=== PATIENT | female | born 1955 | race Caucasian/White ===

== ENCOUNTER 2019-04-24 10:11 | Outpatient (CLI) | payer MEDICARE, OTHER, SELFPAY ==
--- NOTE | 2019-04-24 10:12 | MM_ITS ---
WS: [id number] BILATERAL DIGITAL SCREENING MAMMOGRAPHY WITH CAD CLINICAL INFORMATION: SCREENING HISTORY: Screening mammogram. No current complaints. COMPARISON: April 30, 2017 TECHNIQUE: Bilateral CC and MLO views. FINDINGS: Scattered fibroglandular densities bilaterally. No suspicious focal mass, asymmetry, calcifications, or architectural distortion. No evidence of malignancy. MM/[place] [id number] IMPRESSION: BI-RADS: 1-Negative FOLLOW UP: 1 Year Follow-up Recommend return to annual screening mammography.
== END 2019-04-24 10:12 | disposition home or self-care (01) ==
LOC: RADSHAW 10:11
PROVIDERS: Family Provider Registered Nurse; PCP Registered Nurse; Visit Provider Registered Nurse
DX: Z12.31 Encounter for screening mammogram for malignant neoplasm of breast (principal)
CPT/HCPCS: 77067; 81003

== ENCOUNTER → 2019-05-04 11:31 | Outpatient (BNVA) | payer MEDICARE, OTHER, SELFPAY | PROVIDERS: Family Provider Registered Nurse; PCP Registered Nurse; Visit Provider Nurse Practitioner Family | DX: R10.9 Unspecified abdominal pain (principal); M54.9 Dorsalgia, unspecified; Z86.19 Personal history of other infectious and parasitic diseases | CPT/HCPCS: 80076 ==

== ENCOUNTER 2019-08-03 12:18 | Outpatient (CLI) | payer MEDICARE, OTHER, SELFPAY ==
--- NOTE | 2019-08-03 12:26 | XR_ITS ---
WS: [id number] XR thoracic spine 2V [id number] REASON FOR EXAM: acute thoracic pain FINDINGS: Degenerate changes through the mid thoracic area. The vertebral bodies throughout the thora cic spine do not suggest fractures. Cervicothoracic junction appears to be normal. The cervical spine does show anterior listhesis C4 on 5 and degenerate disc changes C5-6. XR/XR thoracic spine 2V [id number] IMPRESSION: Generated changes of the thoracic spine.
--- NOTE | 2019-08-03 12:26 | XR_ITS ---
WS: [id number] XR lumbar spine 2-3V* [id number] REASON FOR EXAM: lumbar pain FINDINGS: Degenerate disc changes L3-L4. There is posterior spurring the segments. There is also dege nerate changes of the disc spaces L5-S1. There is facet arthropathy L5-S1. The lumbosacral angle was essentially normal. The lamina, pedicles, spinous processes and transverse processes show no fractures. XR/XR lumbar spine 2-3V* [id number] IMPRESSION: Degenerated disc changes L3-L4, L5-S1 Facet arthropathy L5-S1
== END 2019-08-03 12:19 | disposition home or self-care (01) ==
LOC: RAD 12:24
PROVIDERS: PCP Registered Nurse; Visit Provider Registered Nurse
DX: M54.5 Low back pain (principal); M47.817 Spondylosis without myelopathy or radiculopathy, lumbosacral region; M51.37 Other intervertebral disc degeneration, lumbosacral region
CPT/HCPCS: 72070; 72100

== ENCOUNTER 2019-08-14 10:50 | Outpatient (CLI) | payer MEDICARE, OTHER, SELFPAY ==
--- NOTE | 2019-08-14 10:54 | XRR_ITS ---
PROCEDURE INFORMATION: Exam: XR Left Hip with Pelvis when Performed Exam date and time: 08/14/2019 11:35 AM Age: 64 years old Clinical indication: Hip pain; Left hip; Additional info: Left hip pain TECHNIQUE: Imaging protocol: XR Left hip with pelvis when performed. Views: 2 or 3 views. COMPARISON: No relevant prior studies available. FINDINGS: Bones/joints: Unremarkable. No acute fracture. Soft tissues: Unremarkable. XR/XR hip LT 2-3V wo/w pel* [id number] IMPRESSION: No acute findings.
== END 2019-08-14 10:51 | disposition home or self-care (01) ==
LOC: RAD 10:52
PROVIDERS: PCP Registered Nurse; Visit Provider Registered Nurse
DX: M79.671 Pain in right foot (principal); M25.552 Pain in left hip
CPT/HCPCS: 73502

== ENCOUNTER 2019-08-29 12:25 | Outpatient (RCR) | payer MEDICARE, OTHER, SELFPAY | END 2019-09-15 23:59 | disposition home or self-care (01) | LOC: SPT 12:25 | PROVIDERS: PCP Registered Nurse; Referring Provider Registered Nurse; Visit Provider Registered Nurse | DX: R29.4 Clicking hip (principal) | CPT/HCPCS: 97110; 97112; 97161 ==

== ENCOUNTER 2019-09-11 10:52 | Outpatient (CLI) | payer MEDICARE, OTHER, SELFPAY ==
--- NOTE | 2019-09-11 11:00 | CT_ITS ---
WS: [id number] NONCONTRAST CT RIGHT FOOT TECHNIQUE: Noncontrast CT right foot with coronal and sagittal reformatted images. CLINICAL INFORMATION: right foot pain COMPARISON: MRI and radiograph April 24, 2019 DLP: 87.[address] scans at [facility] use at least one of these dose optimization techniques: automat ed exposure control; mA and/or kV adjustment per patient size (includes targeted exams where dose is matched to clinical indication); or iterative reconstruction. FINDINGS: Postoperative changes prior wire fixation across the fourth MTP joint. Bony fusion across the fifth M TP. No evidence of osteomyelitis. Normal ankle mortise. Normal talus. Talar dome appears normal. Norm al talocalcaneal and talonavicular articulations. Anterior process of the calcaneus is normal. Tiny p lantar calcaneal spur. Normal medial and lateral malleolus. Mild degenerative narrowing involving the IP joints. Normal navicular and tarsal bones. No other significant findings. CT/CT foot RT wo con* [id number] IMPRESSION: 1. Prior bony fusion across the fifth MTP. Fusion appears solid. 2. Wire fixation across the fourth MTP. 3. No acute fractures. 4. Normal ankle mortise. Normal talar dome. 5. Mild degenerative narrowing involving the IP joints.
== END 2019-09-11 10:53 | disposition home or self-care (01) ==
LOC: RAD 10:55
PROVIDERS: PCP Registered Nurse; Visit Provider Registered Nurse
DX: M79.671 Pain in right foot (principal)
CPT/HCPCS: 73700

== ENCOUNTER 2019-09-16 06:00 | Outpatient (RCR) | payer MEDICARE, OTHER, SELFPAY | END 2019-10-16 23:59 | disposition home or self-care (01) | LOC: SPT 06:00 | PROVIDERS: PCP Registered Nurse; Referring Provider Registered Nurse; Visit Provider Registered Nurse | DX: R29.4 Clicking hip (principal) | CPT/HCPCS: 97110; 97112; 97530 ==

== ENCOUNTER 2019-11-09 09:00 | Outpatient (CLI) | payer MEDICARE, OTHER, SELFPAY ==
--- NOTE | 2019-11-09 09:00 | MM_ITS ---
WS: [id number] DIAGNOSTIC RIGHT DIGITAL MAMMOGRAM WITH CAD RIGHT breast ultrasound, limited HISTORY: right breast pain COMPARISON: 04/24/2019, 04/30/2017 Technique: CC, MLO and ML views. Breast composition: There are scattered areas of fibroglandular density. No suspicious masses or ski n thickening. There are several benign-appearing lymph nodes in the upper outer quadrant and over the pectoralis muscle. These lymph nodes are stable in appearance over multiple prior examinations. No n ipple retraction or skin thickening. RIGHT breast ultrasound, limited. Ultrasound is directed to the area of pain which is near the axilla. There are multiple small lymph n odes present. Normal fatty alexi. No enlargement of the lymph nodes. No skin thickening or distortion. MM/[place] [id number] IMPRESSION: BI-RADS: 2-Benign FOLLOW UP: 1 Year Follow-up
--- NOTE | 2019-11-09 09:30 | US_ITS ---
WS: [id number] DIAGNOSTIC RIGHT DIGITAL MAMMOGRAM WITH CAD RIGHT breast ultrasound, limited HISTORY: right breast pain COMPARISON: 04/24/2019, 04/30/2017 Technique: CC, MLO and ML views. Breast composition: There are scattered areas of fibroglandular density. No suspicious masses or ski n thickening. There are several benign-appearing lymph nodes in the upper outer quadrant and over the pectoralis muscle. These lymph nodes are stable in appearance over multiple prior examinations. No n ipple retraction or skin thickening. RIGHT breast ultrasound, limited. Ultrasound is directed to the area of pain which is near the axilla. There are multiple small lymph n odes present. Normal fatty alexi. No enlargement of the lymph nodes. No skin thickening or distortion. US/US breast RT limited* [id number] IMPRESSION: BI-RADS: 2-Benign FOLLOW UP: 1 Year Follow-up
== END 2019-11-09 09:01 | disposition home or self-care (01) ==
LOC: RADSHAW 09:05
PROVIDERS: PCP Registered Nurse; Visit Provider Registered Nurse
DX: N64.4 Mastodynia (principal)
CPT/HCPCS: 76642; 77065

== ENCOUNTER → 2019-12-14 14:31 | Outpatient (BNVA) | payer MEDICARE, OTHER, SELFPAY | PROVIDERS: PCP Registered Nurse; Visit Provider Registered Nurse | DX: R30.0 Dysuria (principal) | CPT/HCPCS: 81000 ==

== ENCOUNTER → 2020-04-18 14:56 | Outpatient (BNVA) | payer MEDICARE, OTHER, SELFPAY | PROVIDERS: PCP Registered Nurse; Visit Provider Registered Nurse | DX: L20.9 Atopic dermatitis, unspecified (principal); M19.041 Primary osteoarthritis, right hand; M19.042 Primary osteoarthritis, left hand; R79.89 Other specified abnormal findings of blood chemistry; Z79.899 Other long term (current) drug therapy | CPT/HCPCS: 80053; 82306; 85025; 85651; 86140 ==

== ENCOUNTER 2020-06-03 15:10 | Outpatient (CLI) | payer MEDICARE, OTHER, SELFPAY ==
--- NOTE | 2020-06-03 15:16 | MM_ITS ---
WS: [id number] BILATERAL DIGITAL SCREENING MAMMOGRAPHY WITH CAD CLINICAL INFORMATION: SCREENING HISTORY: Screening mammogram. No current complaints. COMPARISON: April 24, 2019 TECHNIQUE: Bilateral CC and MLO views. FINDINGS: Scattered fibroglandular densities bilaterally. No suspicious focal mass, asymmetry, calcifications, or architectural distortion. No evidence of malignancy. A few incidental punctate calcifications. MM/[place] [id number] IMPRESSION: BI-RADS: 2-Benign FOLLOW UP: 1 Year Follow-up Recommend return to annual screening mammography.
== END 2020-06-03 15:11 | disposition home or self-care (01) ==
LOC: RADSHAW 15:14
PROVIDERS: PCP Registered Nurse; Visit Provider Registered Nurse
DX: Z12.31 Encounter for screening mammogram for malignant neoplasm of breast (principal)
CPT/HCPCS: 77067

== ENCOUNTER 2020-06-18 11:30 | Outpatient (CLI) | payer MEDICARE, OTHER, SELFPAY ==
[2020-06-18 12:01] VITALS: BMI 29.6
--- NOTE | 2020-06-18 12:06 | ECG_ITS ---
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 Interpretive Statements NAME OF STUDY: TREADMILL STRESS ECHOCARDIOGRAM INDICATION: Dyspnea on Exertion PROCEDURE: At the baseline, the patient's blood pressure was 131/71 mmHg, oxygen saturation 98% with a heart rate of 72 beats per minute. The baseline electrocardiogram showed normal sinus rhythm, normal axis with normal ST and T's. The patient exercised for 6 minutes 46 seconds on a standard Cornelio protocol. Patient attained a maximum heart rate of 148 beats per minute(94% of the maximum predicted heart rate) with a blood pressure at the peak exercise of 196/70 mm Hg and oxygen saturation of 98%. The EKG at the peak exercise revealed sinus tachycardia with 1 to 1-1/[address] depression in inferolateral leads. Patient did not have any chest pain or any significant EKG changes with the exercise. Study was terminated due to exertional fatigue and attainment of goal heart rate. During the recovery phase, there were no new changes. Blood pressure at the end of the recovery phase was 155/72 mm Hg with a heart rate of 87 beats per minute and oxygen saturation 97%. Echocardiographic pictures were taken at the baseline, immediately following the peak exercise and during the recovery phase. CONCLUSION: 1. Equivocal EKG response to treadmill exercise. 2. No exercise-induced chest pain or cardiac arrhythmia. 3. Excellent exercise tolerance, attained a maximum of 10.2 METs. Maximum VO2 of 35.7 mL/kg/min. 4. Please see separate report for the echocardiographic response to exercise. RESULTS TO KENDRICK AHMADI Electronically Signed On 06-24-2020 13:39:33 CDT by Nini Dee M.D. [email or web address]
--- NOTE | 2020-06-18 12:07 | USCV_ITS ---
Stress Echo Myra Meneses Age: 65 Gender: F : 1955 Exam Date: 06/18/2020 12:43 Ordering Phys: Nini Dee MD ([email or web address]) Technologist: Exam Location: [facility] [place] Indication: Dyspnea on Exertion Rhythm: Sinus Patient History: Atypical angina, Family history Cardiac Medications: NONE Medications in past 24 hours: Contrast: Stress Results Protocol: Modified Cornelio Total dose(mL): Exercise Duration (min:sec): 06:46 METS: 10.2 Resting HR: 72 Resting BP: 131 / 71 Peak HR: 148 Peak BP: 213 / 72 Max Predicted HR: 156 95 % Max Predicted HR Target HR: 133 Double Product: 69686 Stress Summary: The patient's target heart rate was achieved The patient exhibited a hypertensive response with stress BP Response: Normal Reason for Termination: Test terminated after reaching target heart rate (85% max predicted) Cardiac Symptoms: Leg fatigue, Short of Breath ECG Analysis Resting ECG: Stress ECG: Arrhythmia: MEASUREMENTS (Male/Female) Normal Values FINDINGS PROCEDURE: At the baseline, the patient's blood pressure was [131/71] mmHg with a heart rate of 87 bpm. The patient exercised for 6 minutes 46 seconds on a standard Cornelio protocol. Patient attained a maximum heart rate of 148 beats per minute(95% of the maximum predicted heart rate) with a blood pressure at the peak exercise of 213/72 mm Hg. During the recovery phase, there were no new changes. Echocardiographic pictures were taken at the baseline, immediately following the peak exercise and during the recovery phase. Baseline echocardiogram: Normal left ventricular size and systolic function with ejection fraction estimated at 60%. No regional wall motion abnormalities. Normal right ventricle size and systolic function. Normal left and right atrial size. No pericardial effusion. No intracardiac masses. Peak exercise echocardiogram: Normal augmentation of left ventricular systolic function with exercise. No new regional wall motion abnormalities. Recovery echocardiogram: Left ventricular systolic function normalizes. No regional wall motion abnormalities. CONCLUSIONS 1. This is a treadmill stress echocardiogram. 2. Excellent exercise tolerance for age, attained a maximum of 10.2 METs. Double product of 31,525. 3. Normal blood pressure and heart rate response to exercise. 4. Normal echocardiographic response to exercise. 5. Equivocal EKG response to treadmill exercise. Refer to separate report for details. Nini Dee MD (Electronically Signed) Final Date: 24 Jun 2020 17:10 S
[2020-06-18 13:28] VITALS: BP 155/68; PULSE 82
== END 2020-06-18 11:31 | disposition home or self-care (01) ==
LOC: CDL 11:32
PROVIDERS: PCP Registered Nurse; Visit Provider Internal Medicine Cardiovascular Disease
DX: R06.00 Dyspnea, unspecified (principal)
CPT/HCPCS: 93017; 93350

== ENCOUNTER → 2020-08-14 09:12 | Outpatient (BNVA) | payer MEDICARE, OTHER, SELFPAY | PROVIDERS: PCP Registered Nurse; Visit Provider Internal Medicine Cardiovascular Disease | DX: R06.00 Dyspnea, unspecified (principal); E11.9 Type 2 diabetes mellitus without complications; I10 Essential (primary) hypertension; R94.39 Abnormal result of other cardiovascular function study; Z79.899 Other long term (current) drug therapy; Z82.49 Family history of ischemic heart disease and other diseases of the circulatory system | CPT/HCPCS: 80048; 80061; 86141 ==

== ENCOUNTER → 2020-10-29 13:55 | Outpatient (BNVA) | payer MEDICARE, OTHER, SELFPAY | PROVIDERS: PCP Registered Nurse; Visit Provider Registered Nurse | DX: N39.0 Urinary tract infection, site not specified (principal) | CPT/HCPCS: 81000; 87077; 87086; 87184 ==

== ENCOUNTER 2021-04-21 13:59 | Outpatient (CLI) | payer MEDICARE, OTHER, SELFPAY ==
--- NOTE | 2021-04-21 14:07 | XRR_ITS ---
PROCEDURE INFORMATION: Exam: XR Thoracic Spine Exam date and time: 04/21/2021 2:07 PM Age: 65 years old Clinical indication: Pain in thoracic spine; Patient HX: Back and hip pain, PT felt pop in back for 1 week. HX of cervical and skin cancer TECHNIQUE: Imaging protocol: XR of the thoracic spine. Views: 3 views. COMPARISON: CR XR thoracic spine 2V [id number] 08/03/2019 12:37 PM FINDINGS: Bones/joints: No acute fracture. Normal alignment. Soft tissues: Unremarkable. XR/XR thoracic spine 3V* [id number] IMPRESSION: No acute findings.
--- NOTE | 2021-04-21 14:07 | XRR_ITS ---
PROCEDURE INFORMATION: Exam: XR Bilateral Hips Exam date and time: 04/21/2021 2:07 PM Age: 65 years old Clinical indication: Bilateral; Patient HX: Back and hip pain, PT felt pop in back for 1 week. HX of cervical and skin cancer TECHNIQUE: Imaging protocol: XR bilateral hips. Views: 2 views of hips with pelvis when performed. COMPARISON: CR Hip 2-3v LEFT wwo Pelv* [id number] 05/22/2020 12:12 PM FINDINGS: Bones/joints: Osseous structures are intact. Negative for fracture. Joint spaces are preserved. Soft tissues: Unremarkable. XR/XR hip BI 3-4V wo/w pel [id number] IMPRESSION: No acute findings.
--- NOTE | 2021-04-21 14:07 | XRR_ITS ---
PROCEDURE INFORMATION: Exam: XR Lumbosacral Spine Exam date and time: 04/21/2021 2:07 PM Age: 65 years old Clinical indication: Low back pain; Patient HX: Back and hip pain, PT felt pop in back for 1 week. HX of cervical and skin cancer TECHNIQUE: Imaging protocol: XR of the lumbosacral spine. Views: 2 or 3 views. COMPARISON: CR Lumbar Spine 3 views 05/22/2020 12:10 PM FINDINGS: Bones/joints: No acute fracture. Normal alignment. Multilevel degenerative disc disease within the lumbar spine most significant at L3-L4. Lower lumbar facet arthropathy noted. These findings are not significantly changed from prior study. Soft tissues: Unremarkable. XR/XR lumbar spine 2-3V* [id number] IMPRESSION: No acute findings.
== END 2021-04-21 14:00 | disposition home or self-care (01) ==
LOC: RAD 14:02
PROVIDERS: PCP Nurse Practitioner Family; Visit Provider Nurse Practitioner Family
DX: M54.50 Low back pain, unspecified (principal); M54.6 Pain in thoracic spine; M25.551 Pain in right hip; M25.552 Pain in left hip
CPT/HCPCS: 72072; 72100; 73522

== ENCOUNTER 2021-05-14 13:08 | Outpatient (CLI) | payer MEDICARE, OTHER, SELFPAY ==
--- NOTE | 2021-05-14 13:45 | MR_ITS ---
WS: [id number] MRI LUMBAR SPINE NONCONTRAST TECHNIQUE: Sagittal T1, T2 and STIR imaging. Axial T1 and T2 imaging. CLINICAL INFORMATION: Progressive pain in right leg. COMPARISON: MRI 3 FINDINGS: Mild lumbar curve. No acute compression. No high-grade central canal stenosis. Disc space narrowing w orse at L2-L3 and L3-L4 unchanged from previous. L1-L2: Mild annular bulging. Spinal canal and foramen are patent. Slight narrowing of the RIGHT subar ticular recess. Mild facet arthropathy. L2-L3: Mild disc bulging with slight effacement of ventral thecal sac. Narrowing of the subarticular recess. Mild facet arthropathy. Mild LEFT foraminal narrowing. RIGHT foramen is patent. Previously de scribed LEFT pericentral protrusion is smaller today. L3-L4: Mild disc bulging with osteophytic ridging. Narrowing of the subarticular recess bilaterally. Mild LEFT foraminal narrowing. RIGHT foramen is patent. Mild facet arthropathy. L4-L5: Mild annular bulging. Slight narrowing of the RIGHT subarticular recess. Mild LEFT greater charly n RIGHT foraminal narrowing. L5-S1: Mild disc bulging with osteophytic ridging. Moderate facet arthropathy. Spinal canal and brenden en are patent. Visualized pelvic bony structures: Normal. Paravertebral soft tissues: Normal. MR/MR lumbar spine wo con* [id number] IMPRESSION: 1. Mild lumbar curve. No acute compression. No high-grade central canal stenos is. 2. Disc space narrowing worse at L2-L3 and L3-L4 unchanged from previous. 3. Mild central canal stenosis L3-L4 unchanged from previous with narrowing of the subarticular recess bilaterally. 4. Mild LEFT L2-L3 foraminal narrowing with slight narrowing of the LEFT subar ticular recess unchanged. 5. Mild LEFT L3-L4 and LEFT greater than RIGHT L4-L5 foraminal narrowing uncha nged. 6. Moderate facet arthropathy worse L5-S1. 7. Overall no significant changes compared to previous.
== END 2021-05-14 13:09 | disposition home or self-care (01) ==
LOC: RAD 13:10
PROVIDERS: PCP Nurse Practitioner Family; Visit Provider Nurse Practitioner Family
DX: M79.604 Pain in right leg (principal); M48.061 Spinal stenosis, lumbar region without neurogenic claudication; M47.817 Spondylosis without myelopathy or radiculopathy, lumbosacral region
CPT/HCPCS: 72148

== ENCOUNTER 2021-06-19 15:09 | Outpatient (CLI) | payer MEDICARE, OTHER, SELFPAY ==
--- NOTE | 2021-06-19 15:17 | MM_ITS ---
WS: [id number] BILATERAL 3D TOMOSYNTHESIS DIGITAL SCREENING MAMMOGRAPHY WITH CAD CLINICAL INFORMATION: SCREENING HISTORY: Screening mammogram. No current complaints. COMPARISON: June 03, 2020 TECHNIQUE: Bilateral CC and MLO views. FINDINGS: Scattered fibroglandular densities bilaterally. A few incidental punctate calcifications. No suspicio us focal mass, asymmetry, calcifications, or architectural distortion. No evidence of malignancy. MM/[place] [id number] IMPRESSION: BI-RADS: 2-Benign FOLLOW UP: 1 Year Follow-up Recommend return to annual screening mammography.
== END 2021-06-19 15:10 | disposition home or self-care (01) ==
LOC: RAD 15:10
PROVIDERS: PCP Nurse Practitioner Family; Visit Provider Nurse Practitioner Family
DX: Z12.31 Encounter for screening mammogram for malignant neoplasm of breast (principal)
CPT/HCPCS: 77063; 77067

== ENCOUNTER → 2021-07-01 14:18 | Outpatient (BNVA) | payer MEDICARE, OTHER, SELFPAY | PROVIDERS: PCP Nurse Practitioner Family; Referring Provider Nurse Practitioner Family; Visit Provider Orthopaedic Surgery | DX: M48.061 Spinal stenosis, lumbar region without neurogenic claudication (principal) | CPT/HCPCS: 72120; 99203; 99204 ==

== ENCOUNTER 2021-07-16 14:02 | Outpatient (RCR) | payer MEDICARE, OTHER, SELFPAY | END 2021-08-14 23:59 | disposition home or self-care (01) | LOC: SPT 14:02 | PROVIDERS: PCP Nurse Practitioner Family; Referring Provider Orthopaedic Surgery; Visit Provider Orthopaedic Surgery | DX: M48.061 Spinal stenosis, lumbar region without neurogenic claudication (principal) | CPT/HCPCS: 97110; 97161 ==

== ENCOUNTER 2021-07-21 13:25 | Outpatient (CLI) | payer MEDICARE, OTHER, SELFPAY ==
--- NOTE | 2021-07-21 14:30 | CT_ITS ---
WS: [id number] CT ABDOMEN WITHOUT CONTRAST HISTORY: Abd pain, diffuse upper quadrant Contiguous noncontrast 5 mm axial imaging performed through the abdomen. Oral contrast has not been p rovided. Coronal and sagittal reformats are submitted. All CT scans at [facility] use at leas t one of these dose optimization techniques: automated exposure control; mA and/or kV adjustment per patient size (includes targeted exams where dose is matched to clinical indication); or iterative rec onstruction. CONTRAST: None DLP: 590.78 mGy.cm COMPARISON: None available. Lower thorax: Unremarkable. Liver: Normal. No intrahepatic dilatation. Gallbladder: Prior cholecystectomy. Pancreas: Normal. Spleen: Normal. Adrenals: Normal. Right kidney: Normal. Left kidney: Normal. Aorta: Mild atherosclerotic plaque throughout the aorta. No aneurysm. GI tract: Stomach is markedly distended with food products and mild diffuse wall thickening of the st omach. Beginning in the second portion of the duodenum there is a normal caliber. Visualized GI tract in the upper abdomen is normal. No adenopathy or free fluid. Abdominal wall: No hernia. Visualized osseous structures: Mild spondylitic changes in the lumbar spine. CT/CT abdomen wo con [id number] IMPRESSION: 1. Marked distention of the stomach. There is also mild diffuse gastric wall t hickening. Correlate for possible gastroparesis and outlet obstruction. No mass is identified on this unenhanced CT. Beginning in the second portion of the du odenum the caliber returns to normal. 2. Prior cholecystectomy.
== END 2021-07-21 13:26 | disposition home or self-care (01) ==
LOC: RAD 13:29
PROVIDERS: PCP Nurse Practitioner Family; Visit Provider Nurse Practitioner Family
DX: R10.10 Upper abdominal pain, unspecified (principal); K31.89 Other diseases of stomach and duodenum; Z90.49 Acquired absence of other specified parts of digestive tract
CPT/HCPCS: 74150

== ENCOUNTER → 2021-08-05 09:02 | Outpatient (BNVA) | payer MEDICARE, OTHER, SELFPAY | PROVIDERS: PCP Nurse Practitioner Family; Visit Provider Orthopaedic Surgery | DX: M54.50 Low back pain, unspecified (principal); M79.604 Pain in right leg | CPT/HCPCS: 99213 ==

== ENCOUNTER → 2021-08-14 13:11 | Outpatient (BNVA) | payer MEDICARE, OTHER, SELFPAY | PROVIDERS: PCP Nurse Practitioner Family; Visit Provider Surgery | DX: R19.01 Right upper quadrant abdominal swelling, mass and lump (principal); E88.2 Lipomatosis, not elsewhere classified | CPT/HCPCS: 99203 ==

== ENCOUNTER 2021-08-15 06:00 | Outpatient (RCR) | payer MEDICARE, OTHER, SELFPAY | END 2021-09-14 23:59 | disposition home or self-care (01) | LOC: SPT 06:00 | PROVIDERS: PCP Nurse Practitioner Family; Referring Provider Orthopaedic Surgery; Visit Provider Orthopaedic Surgery | DX: M48.061 Spinal stenosis, lumbar region without neurogenic claudication (principal) | CPT/HCPCS: 97110 ==

== ENCOUNTER 2021-09-15 06:00 | Outpatient (RCR) | payer MEDICARE, OTHER, SELFPAY | END 2021-10-15 23:59 | disposition home or self-care (01) | LOC: SPT 06:00 | PROVIDERS: PCP Nurse Practitioner Family; Visit Provider Orthopaedic Surgery | DX: M54.2 Cervicalgia (principal) | CPT/HCPCS: 97110 ==

== ENCOUNTER 2021-10-15 09:10 | Outpatient (CLI) | payer MEDICARE, OTHER, SELFPAY ==
--- NOTE | 2021-10-15 09:15 | US_ITS ---
WS: [id number] ULTRASOUND SOFT TISSUES HISTORY: upper right quadrant mass COMPARISON: CT abdomen 07/21/2021. TECHNIQUE: 2-D and color Doppler imaging is submitted. Patient directed ultrasound to the RIGHT upper quadrant. Ultrasound directed to the superficial locat ion. Patient complains of palpable abnormalities. Ultrasound evaluation with no soft tissue masses identified. There is no increased vascularity. Also no abnormality was noted on the CT from 07/21/2021 in the RIGHT upper quadrant in a similar location. US/US abdomen limited [id number] IMPRESSION: No soft tissue abnormality RIGHT upper quadrant as directed by the patient.
== END 2021-10-15 09:11 | disposition home or self-care (01) ==
LOC: RAD 09:10
PROVIDERS: PCP Nurse Practitioner Family; Visit Provider Surgery
DX: R49.9 Unspecified voice and resonance disorder (principal); H91.90 Unspecified hearing loss, unspecified ear; H93.19 Tinnitus, unspecified ear; Z87.891 Personal history of nicotine dependence; R19.01 Right upper quadrant abdominal swelling, mass and lump
CPT/HCPCS: 31575; 76705; 99204

== ENCOUNTER 2021-10-16 06:00 | Outpatient (RCR) | payer MEDICARE, OTHER, SELFPAY | END 2021-11-14 23:59 | disposition home or self-care (01) | LOC: SPT 06:00 | PROVIDERS: PCP Nurse Practitioner Family; Visit Provider Orthopaedic Surgery | DX: M48.061 Spinal stenosis, lumbar region without neurogenic claudication (principal) | CPT/HCPCS: 97110 ==

== ENCOUNTER → 2021-10-23 13:00 | Outpatient (BNVA) | payer MEDICARE, OTHER, SELFPAY | PROVIDERS: PCP Nurse Practitioner Family; Visit Provider Surgery | DX: R19.01 Right upper quadrant abdominal swelling, mass and lump (principal); E88.2 Lipomatosis, not elsewhere classified | CPT/HCPCS: 99213 ==

== ENCOUNTER 2021-11-15 06:00 | Outpatient (RCR) | payer MEDICARE, OTHER, SELFPAY | END 2021-12-15 23:59 | disposition home or self-care (01) | LOC: SPT 06:00 | PROVIDERS: PCP Nurse Practitioner Family; Visit Provider Orthopaedic Surgery | DX: M48.061 Spinal stenosis, lumbar region without neurogenic claudication (principal); M54.50 Low back pain, unspecified; M54.2 Cervicalgia | CPT/HCPCS: 97110 ==

== ENCOUNTER 2021-12-09 06:48 | Day surgery (SDC) | payer MEDICARE, OTHER, SELFPAY ==
[2021-12-08 09:29] VITALS: BMI 29.0
[2021-12-09] VITALS (10 sets, daily range): BP systolic 105–163; BP diastolic 60–90; PULSE 70–83; RESP 12–20; TEMP 35.7–36.4; O2SAT 95–100
[2021-12-09] MEDS: sodium chloride 0.9% 1,000 ML 30 ML IV (07:29)
[2021-12-09 07:31] LABS: Glucose Point of Care 127 mg/dL (70-110)
[2021-12-09] MEDS: diphenhydrAMINE 50 mg/mL SDV 1mL 12.5 MG IVP (08:18)
[2021-12-09] MEDS: ondansetron 2 mg/ML SDV 2 mL 4 MG IVP (08:19)
[2021-12-09] MEDS: scopolamine 1.5 Patch 1 PATCH TRANSDERMA (08:19)
--- NOTE | 2021-12-09 08:19 | W.PM.OPSFHP ---
Same Day Surgery H&P Indication for Procedure/HPI DATE OF PROCEDURE: December 09, 2021 CHIEF COMPLAINT/INDICATIONFOR SURGICAL PROCEDURE: Lumps PREOP DIAGNOSIS: Lipomatosis PLANNED PROCEDURE: Operation Date: 12/09/21 08:40 Proposed Procedures p Excision of left lower back mass and upper right quadrant mass 45309,54445,R22.2,R19.01(Left) - Pablo Holcomb MD Patient comes today for elective excision of right upper quadrant and left lower back masses ROS All systems have been reviewed negative except as for the above or per problem list. Medications/Allergies* Home Medications Medication Instructions Recorded Confirmed Type mecobalamin (vitamin B12) 1,000 1,000 mcg sublingual DAILY 04/18/20 12/09/21 History mcg disintegrating tablet,sublingual vitamin D3 250 mcg (10,000 1 cap PO DAILY 04/18/20 12/09/21 History unit)-vitamin K2 45 mcg capsule idehbkhw-ywm-mhqtrmitx-C-hyaluronic 3 tab PO DAILY 05/08/20 12/09/21 History 500 mg-300 mg-400 mg-10 mg tablet magnesium oxide 500 mg capsule 500 mg PO DAILY 05/08/20 12/09/21 History melatonin 3 mg capsule 3 mg PO DAILY 05/08/20 12/09/21 History turmeric 400 mg capsule 1,600 mg PO DAILY 05/08/20 12/09/21 History coenzyme Q10 100 mg capsule 100 mg PO DAILY 09/24/20 12/09/21 History (CoQ-10) CBD /THC 1 ml sublingual BEDTIME PRN 03/25/21 12/09/21 History Insomnia baclofen 10 mg tablet 10 mg PO BID PRN muscle spasms 03/25/21 12/09/21 History red yeast rice 600 mg capsule 1,200 mg PO DAILY 03/25/21 12/09/21 History triamcinolone acetonide 0.5 % 1 applic topical DAILY PRN Rash 03/25/21 12/08/21 History topical cream valacyclovir 1 gram tablet 2,000 mg PO ONCE PRN Cold Sores 03/25/21 12/09/21 History evening primrose oil 500 mg capsule 500 mg PO TID 07/30/21 12/09/21 History Digestive Enzyme 1 tab PO TIDWMEAL 08/05/21 12/09/21 History Elderberry 1 ml PO DAILY 12/09/21 12/09/21 History Fish Oil 3,300 mg fish oil PO DAILY 12/09/21 12/09/21 History zinc 25 mg tablet 25 mg PO DAILY 12/09/21 12/09/21 History Allergies/Adverse Reactions Allergy/AdvReac Type Severity Reaction Status Date / Time Iodinated Contrast Media Allergy Severe ALGY-Difficulty Verified 12/09/21 08:20 Breathing codeine Allergy Unknown Verified 12/09/21 08:20 fluticasone furoate Allergy Unknown Verified 12/09/21 08:20 [From Breo Ellipta] Sulfa (Sulfonamide Allergy unk Verified 12/09/21 08:20 Antibiotics) vilanterol Allergy Unknown Verified 12/09/21 08:20 [From Breo Ellipta] Current Medications: Generic Name Dose Route Start Last Admin Trade Name Freq PRN Reason Stop Dose Admin Diphenhydramine HCl 12.5 mg 12/09/21 06:55 12/09/21 08:18 Diphenhydramine 50 Mg/Ml Sdv 1ml IVP 12.5 mg ONCE PRN Administration ANESTHESIA Sodium Chloride 1,000 mls @ 30 mls/hr 12/09/21 07:00 12/09/21 07:29 Sodium Chloride 0.9% IV 12/10/21 06:59 30 mls/hr .Q24H VAUGHN Administration Ondansetron HCl 4 mg 12/09/21 06:55 12/09/21 08:19 Ondansetron 2 Mg/Ml Sdv 2 Ml IVP 4 mg Q5M PRN Administration NAUSEA AND VOMITING Pertinent History/Comorbid Conditions* Medical History (Updated 11/27/21 @ 15:59 by Vinny Rojas MD) Cervical disc disorder with myelopathy, high cervical region Essential (primary) hypertension Family history of ischemic heart disease hx of family members <65years Fibromyalgia Gastroesophageal reflux disease Hx of hepatitis C Type 2 diabetes mellitus without complications Surgical History (Updated 10/15/21 @ 12:58 by Wilbert Haque MD) History of cholecystectomy History of hysterectomy History of parotidectomy Nov benign tumor removed Family History (Updated 04/18/20 @ 13:58 by Sarah Burgess LPN) Brother, age 37. Diabetes Myocardial infarct Brother Pt has also had uncle pass at age 57 and an Aunt that passed at age 60 from an [place] Cancer Stroke Social History Smoking and tobacco status: never smoked Alcohol intake: former Year of sobriety/quit date alcohol: 20 Y Former alcohol use details: GLASS NIGHTLY Desire information about alcohol rehabilitation?: No Counseling given: No Adopted: No Caregiver/support person: No Current occupational status: employed History of recent travel: No Current gender identity: Female Pertinent Exam Findings alert, oriented x 3, regular rate & rhythm, operative site marked and procedure specific exam findings (Abdominal exam nontender nondistended soft) Recommendations Surgery/Procedure today (Excision of torso masses) Other Plans: Masses were marked in the presence of female 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
--- NOTE | 2021-12-09 08:20 | ANES.PREANE2 ---
Pre-Anesthetic Assessment Height/Weight: Height 1.55 m Weight 69.853 kg Temp Pulse Resp BP Pulse Ox O2 Del Method 97.6 F 77 18 163/85 99 12/09/21 07:06 12/09/21 07:06 12/09/21 07:06 12/09/21 07:06 12/09/21 07:06 12/09/21 07:09 Preop Diagnosis: Lipomatosis Operation Date: 12/09/21 08:40 Proposed Procedures p Excision of left lower back mass and upper right quadrant mass 16418,62012,R22.2,R19.01(Left) - Pablo Holcomb MD Familial anesthetic complications: PONV Was Beta Perry taken within 24 hours: N/A Was Clonidine taken within 24 hours: N/A Last intake: Intake Last Liquid Date 12/08/21 Last Liquid Time 20:00 Last Solid Date 12/07/21 Last Solid Time 18:00 Social No alcohol and No tobacco Exam alert, oriented x 3, clear to auscultation bilaterally and regular rate & rhythm Airway Submandibular: within normal limits Cervical ROM: within normal limits Mallampati: Class II Dentition: full Hepatic Hepatitis (C) GI Gastroesophageal Reflux Disease Metabolic Diabetes Mellitus Musc/skel Lower Back Pain and Osteoarthritis/DJD Anesthetic Plan ASA status: 2 Anesthesia: General Medications/Allergies Home Medications Medication Instructions Recorded Confirmed Last Taken Type mecobalamin (vitamin B12) 1,000 1,000 mcg sublingual DAILY 04/18/20 12/09/21 12/08/21 History mcg disintegrating tablet,sublingual vitamin D3 250 mcg (10,000 1 cap PO DAILY 04/18/20 12/09/21 12/08/21 History unit)-vitamin K2 45 mcg capsule eijntnul-ksq-ldkfwnuwn-C-hyaluronic 3 tab PO DAILY 05/08/20 12/09/21 1 Week Ago History 500 mg-300 mg-400 mg-10 mg tablet ~12/02/21 magnesium oxide 500 mg capsule 500 mg PO DAILY 05/08/20 12/09/21 12/08/21 History melatonin 3 mg capsule 3 mg PO DAILY 05/08/20 12/09/21 12/08/21 History turmeric 400 mg capsule 1,600 mg PO DAILY 05/08/20 12/09/21 1 Week Ago History ~12/02/21 coenzyme Q10 100 mg capsule 100 mg PO DAILY 09/24/20 12/09/21 12/08/21 History (CoQ-10) 50 CBD /THC 1 ml sublingual BEDTIME PRN 03/25/21 12/09/21 12/08/21 History Insomnia 1900 baclofen 10 mg tablet 10 mg PO BID PRN muscle spasms 03/25/21 12/09/21 1 Year Ago History ~12/09/20 red yeast rice 600 mg capsule 1,200 mg PO DAILY 03/25/21 12/09/21 12/08/21 History 600 triamcinolone acetonide 0.5 % 1 applic topical DAILY PRN Rash 03/25/21 12/08/21 Unknown History topical cream valacyclovir 1 gram tablet 2,000 mg PO ONCE PRN Cold Sores 03/25/21 12/09/21 12/06/21 History evening primrose oil 500 mg capsule 500 mg PO TID 07/30/21 12/09/21 12/07/21 History Digestive Enzyme 1 tab PO TIDWMEAL 08/05/21 12/09/21 12/08/21 History meloxicam 7.5 mg tablet 7.5 mg PO DAILY #180 tabs 08/26/21 12/09/21 12/09/21 Rx omeprazole 20 mg capsule,delayed 20 mg PO DAILY #90 caps 08/26/21 12/09/21 12/09/21 Rx release ipratropium bromide 42 mcg (0.06 2 spray intranasal TID #15 mL 11/27/21 12/09/21 12/08/21 Rx %) nasal spray Elderberry 1 ml PO DAILY 12/09/21 12/09/21 1 Week Ago History ~12/02/21 Fish Oil 3,300 mg fish oil PO DAILY 12/09/21 12/09/21 1 Week Ago History ~12/02/21 zinc 25 mg tablet 25 mg PO DAILY 12/09/21 12/09/21 1 Week Ago History ~12/02/21 Allergies Allergy/AdvReac Type Severity Reaction Status Date / Time Iodinated Contrast Media Allergy Severe ALGY-Difficulty Verified 12/09/21 08:20 Breathing codeine Allergy Unknown Verified 12/09/21 08:20 fluticasone furoate Allergy Unknown Verified 12/09/21 08:20 [From Breo Ellipta] Sulfa (Sulfonamide Allergy unk Verified 12/09/21 08:20 Antibiotics) vilanterol Allergy Unknown Verified 12/09/21 08:20 [From Breo Ellipta] Current Medications Generic Name Dose Route Start Last Admin Trade Name Freq PRN Reason Stop Dose Admin Diphenhydramine HCl 12.5 mg 12/09/21 06:55 12/09/21 08:18 Diphenhydramine 50 Mg/Ml Sdv 1ml IVP 12.5 mg ONCE PRN Administration ANESTHESIA Sodium Chloride 1,000 mls @ 30 mls/hr 12/09/21 07:00 12/09/21 07:29 Sodium Chloride 0.9% IV 12/10/21 06:59 30 mls/hr .Q24H VAUGHN Administration Ondansetron HCl 4 mg 12/09/21 06:55 12/09/21 08:19 Ondansetron 2 Mg/Ml Sdv 2 Ml IVP 4 mg Q5M PRN Administration NAUSEA AND VOMITING PFSH Anesthesia Medical History Cervical disc disorder with myelopathy, high cervical region Essential (primary) hypertension Family history of ischemic heart disease hx of family members <65years Fibromyalgia Gastroesophageal reflux disease Hx of hepatitis C Type 2 diabetes mellitus without complications Surgical History History of cholecystectomy History of hysterectomy History of parotidectomy Nov benign tumor removed Family History Brother , age 37. Myocardial infarct Pt has also had uncle pass at age 57 and an Aunt that passed at age 60 from an DE Other Cancer Diabetes Stroke Social History Smoking and tobacco status: never smoked Alcohol intake: former Year of sobriety/quit date alcohol: 20 Y Former alcohol use details: GLASS NIGHTLY Desire information about alcohol rehabilitation?: No Counseling given: No Adopted: No Caregiver/support person: No Current occupational status: employed History of recent travel: No Current gender identity: Female Data Anesthesia Cardiac Studies: Stress Echocardiogram 06/18/20
[2021-12-09] MEDS: ceFAZolin 2,000 MG in sodium chloride 0.9% (plus) 50 ML 100 MG IV (09:04)
[2021-12-09] MEDS: lidocaine 1% INJ 20 mL SUBCUT (09:19)
--- NOTE | 2021-12-09 10:00 | P.OP_ITS ---
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 LMA was placed by the anesthesia provider. Prep and drape was done under the usual sterile technique. IV antibiotics were given per protocol. Timeout was done verifying the patient's name, procedure and destination after the procedure and everybody was in agreement. Palpation of right upper quadrant mass followed by injection of lidocaine 1%. Incision was created and dissection of angiolipoma like structure measures about 2 x 2 cm. Was sent for permanent pathology after excision. Appropriate irrigation hemostasis was achieved followed by closure with 3-0 Vicryl then 4-0 Monocryl followed by surgical glue and dry dressing. Attention now was deviated towards repositioning the patient after the drapes were taken down.In a right lateral position, followed by prep and drape of the left lower back under the usual sterile technique. After palpation of the mass. Infiltration of local anesthetic. A transverse incision on top of the mass was done using 15 blade knife and further dissection was found to have an intramuscular lipoma that was totally excised. Measures about 5 x 5 cm. Thorough irrigation of the cavity was done and hemostasis, followed by deep dermal closure by 2-0 Vicryl, then 4-0 followed by surgical glue and dry dressing. Patient tolerated the procedure well, count of needles, instruments and sponges were completed at the end of the procedure. And then patient was taken to the recovery area in stable condition. I was present for the whole entire procedure
--- NOTE | 2021-12-09 17:07 | ANE.PACU2 ---
Inpatient post-anesthesia follow up: Airway intact: Yes Vital signs: Temperature 96.3 F Pulse Rate 83 Respiratory Rate 18 Blood Pressure 105/90 Pulse Oximetry 96 Oxygen Delivery Me thod Room Air Oxygen Flow Rate Fraction of Inspir ed Oxygen Hydration adequate: Yes Nausea and vomiting: No Pain level: 2 Mental status: Baseline
== END 2021-12-09 11:11 | disposition home or self-care (01) ==
PROVIDERS: PCP Nurse Practitioner Family; Visit Provider Surgery
PROC: (CPT 11402; principal; 2021-12-09 08:30)
DX: D17.1 Benign lipomatous neoplasm of skin and subcutaneous tissue of trunk (principal); Z86.19 Personal history of other infectious and parasitic diseases; E11.9 Type 2 diabetes mellitus without complications; K21.9 Gastro-esophageal reflux disease without esophagitis; M19.90 Unspecified osteoarthritis, unspecified site; I10 Essential (primary) hypertension; M79.7 Fibromyalgia
CPT/HCPCS: 11402; 11406; 12032; 36416; 82962; 88304; J0690; J1100; J1200; J2405; J2704; J2765; J3010; J3490; J7030

== ENCOUNTER 2021-12-10 12:44 | Outpatient (CLI) | payer MEDICARE, OTHER, SELFPAY ==
[2021-12-10 13:16] LABS: Basophils # 0.1 10^3/uL (0.0-0.1); Basophils % 0.5 %; Eosinophils # 0.1 10^3/uL (0.0-0.8); Eosinophils % 0.3 %; Hematocrit 39.7 % (37.0-47.0); Hemoglobin 13.7 g/dL (11.5-15.3); Lymphocytes # 3.2 10^3/uL (0.8-4.8); Mean Corpuscular HGB Conc 34.5 g/dL (30.0-36.0); Mean Corpuscular Hemoglobin 31.3 pg (28.0-34.0); Mean Corpuscular Volume 90.6 fl (81-99); Mean Platelet Volume 11.1 fL (7.4-10.4); Monocytes # 1.5 10^3/uL (0.2-0.9); Monocytes % 9.6 %; Neutrophils # 10.94 10^3/uL (1.8-7.7); Neutrophils % 69.2 %; Nucleated Red Blood Cells % 0 %; Platelet Count 271 10^3/cmm (130-400); Red Blood Count 4.38 10^6/uL (4.1-5.3); Red Cell Distribution Width 12.5 % (12.1-15.1); White Blood Count 15.8 10^3/uL (4.0-10.0)
[2021-12-10 13:37] LABS: Alanine Aminotransferase 18 U/L (0-33); Albumin Level 4.6 g/dL (3.5-5.2); Alkaline Phosphatase 84 U/L (35-105); Aspartate Amino Transferase 18 U/L (0-32); Blood Urea Nitrogen 19 mg/dL (8-23); Calcium 9.6 mg/dL (8.5-10.5); Carbon Dioxide 28 mmol/L (22-29); Chloride 98 mmol/L (98-107); Globulin 2.5 g/dL (1.3-4.6); Glomerular Filtration Rate 100.3 mL/min (90-130); Glucose 104 mg/dL (65-115); Osmolality Calculated 287 mOsm/kg (285-295); Sodium 137 mmol/L (136-145); Total Bilirubin 0.2 mg/dL (0.15-1.2); Total Protein 7.1 g/dL (6.6-8.7)
[2021-12-10 14:39] LABS: Anion Gap 14.9 (5-19); Potassium 3.9 mmol/L (3.5-5.1)
== END 2021-12-10 12:45 | disposition home or self-care (01) ==
LOC: LAB 12:46
PROVIDERS: PCP Nurse Practitioner Family; Visit Provider Surgery
DX: Z01.89 Encounter for other specified special examinations (principal); Z09 Encounter for follow-up examination after completed treatment for conditions other than malignant neoplasm
CPT/HCPCS: 36415; 80053; 85025; 99024

== ENCOUNTER → 2021-12-17 14:01 | Outpatient (BNVA) | payer MEDICARE, OTHER, SELFPAY | PROVIDERS: PCP Internal Medicine; Visit Provider Surgery | DX: Z09 Encounter for follow-up examination after completed treatment for conditions other than malignant neoplasm (principal) | CPT/HCPCS: 99024 ==

== ENCOUNTER 2022-01-15 06:00 | Outpatient (RCR) | payer MEDICARE, OTHER, SELFPAY | END 2022-02-14 23:59 | disposition home or self-care (01) | LOC: SPT 06:00 | PROVIDERS: PCP Family Medicine; Visit Provider Orthopaedic Surgery | DX: M54.2 Cervicalgia (principal) | CPT/HCPCS: 97110 ==

== ENCOUNTER → 2022-01-15 14:25 | Outpatient (BNVA) | payer MEDICARE, OTHER, SELFPAY | PROVIDERS: PCP Family Medicine; Visit Provider Family Medicine | DX: J30.9 Allergic rhinitis, unspecified (principal); E55.9 Vitamin D deficiency, unspecified; E11.9 Type 2 diabetes mellitus without complications | CPT/HCPCS: 82306; 83036 ==

== ENCOUNTER → 2022-02-10 12:24 | Outpatient (BNVA) | payer MEDICARE, OTHER, SELFPAY | PROVIDERS: PCP Family Medicine; Visit Provider Registered Nurse Neonatal Intensive Care | DX: R05.9 Cough, unspecified (principal) | CPT/HCPCS: 71046 ==

== ENCOUNTER 2022-02-15 06:00 | Outpatient (RCR) | payer MEDICARE, OTHER, SELFPAY | END 2022-03-17 23:59 | disposition home or self-care (01) | LOC: SPT 06:00 | PROVIDERS: PCP Family Medicine; Visit Provider Orthopaedic Surgery | DX: M54.2 Cervicalgia (principal) | CPT/HCPCS: 97110 ==

== ENCOUNTER → 2022-02-24 12:58 | Outpatient (BNVA) | payer MEDICARE, OTHER, SELFPAY | PROVIDERS: PCP Family Medicine; Visit Provider Otolaryngology | DX: H90.5 Unspecified sensorineural hearing loss (principal); H93.19 Tinnitus, unspecified ear | CPT/HCPCS: 99212; 99213 ==

== ENCOUNTER 2022-03-18 06:00 | Outpatient (RCR) | payer MEDICARE, OTHER, SELFPAY | END 2022-04-14 23:59 | disposition home or self-care (01) | LOC: SPT 06:00 | PROVIDERS: PCP Family Medicine; Visit Provider Orthopaedic Surgery | DX: M48.061 Spinal stenosis, lumbar region without neurogenic claudication (principal); M54.50 Low back pain, unspecified; M54.2 Cervicalgia | CPT/HCPCS: 97110 ==

== ENCOUNTER → 2022-03-25 10:42 | Outpatient (BNVA) | payer MEDICARE, OTHER, SELFPAY | PROVIDERS: PCP Family Medicine; Visit Provider Internal Medicine Cardiovascular Disease | DX: R06.00 Dyspnea, unspecified (principal); R94.39 Abnormal result of other cardiovascular function study; Z82.49 Family history of ischemic heart disease and other diseases of the circulatory system; Q24.5 Malformation of coronary vessels; E11.9 Type 2 diabetes mellitus without complications; Z87.891 Personal history of nicotine dependence | CPT/HCPCS: 99214; Q3014 ==

== ENCOUNTER 2022-04-15 06:00 | Outpatient (RCR) | payer MEDICARE, OTHER, SELFPAY | END 2022-05-15 23:59 | disposition home or self-care (01) | LOC: SPT 06:00 | PROVIDERS: PCP Family Medicine; Visit Provider Orthopaedic Surgery | DX: M48.061 Spinal stenosis, lumbar region without neurogenic claudication (principal) | CPT/HCPCS: 97110 ==

== ENCOUNTER 2022-05-16 06:00 | Outpatient (RCR) | payer MEDICARE, OTHER, SELFPAY | END 2022-06-14 23:59 | disposition home or self-care (01) | LOC: SPT 06:00 | PROVIDERS: PCP Family Medicine; Visit Provider Orthopaedic Surgery | DX: M48.061 Spinal stenosis, lumbar region without neurogenic claudication (principal) | CPT/HCPCS: 97110 ==

== ENCOUNTER 2022-06-23 13:34 | Outpatient (CLI) | payer MEDICARE, OTHER, SELFPAY ==
--- NOTE | 2022-06-23 13:42 | MM_ITS ---
WS: [id number] BILATERAL 3D TOMOSYNTHESIS DIGITAL SCREENING MAMMOGRAPHY WITH CAD CLINICAL INFORMATION: SCREENING HISTORY: Screening mammogram. No current complaints. COMPARISON: 2021 TECHNIQUE: Bilateral CC and MLO views. FINDINGS: Scattered fibroglandular densities bilaterally. No suspicious focal mass, asymmetry, calcifications, or architectural distortion. No evidence of malignancy. A few tiny incidental punctate calcifications . MM/[place] [id number] IMPRESSION: BI-RADS: 2-Benign FOLLOW UP: 1 Year Follow-up Recommend return to annual screening mammography.
== END 2022-06-23 13:35 | disposition home or self-care (01) ==
LOC: RAD 13:39
PROVIDERS: PCP Family Medicine; Visit Provider Family Medicine
DX: Z12.31 Encounter for screening mammogram for malignant neoplasm of breast; L85.3 Xerosis cutis; D22.62 Melanocytic nevi of left upper limb, including shoulder; L81.4 Other melanin hyperpigmentation; Z12.83 Encounter for screening for malignant neoplasm of skin; L57.8 Other skin changes due to chronic exposure to nonionizing radiation; L82.1 Other seborrheic keratosis; L82.0 Inflamed seborrheic keratosis; L57.0 Actinic keratosis
CPT/HCPCS: 17000; 17003; 17110; 77063; 77067; 99213

== ENCOUNTER → 2022-07-06 15:14 | Outpatient (BNVA) | payer MEDICARE, OTHER, SELFPAY | PROVIDERS: PCP Family Medicine; Visit Provider Podiatrist Foot & Ankle Surgery | DX: M79.672 Pain in left foot (principal); M79.671 Pain in right foot; L84 Corns and callosities | CPT/HCPCS: 73630; 99213 ==

== ENCOUNTER → 2022-12-02 15:28 | Outpatient (BNVA) | payer MEDICARE, OTHER, SELFPAY | PROVIDERS: PCP Family Medicine; Visit Provider Nurse Practitioner Family | DX: L71.0 Perioral dermatitis (principal); D22.39 Melanocytic nevi of other parts of face; L57.8 Other skin changes due to chronic exposure to nonionizing radiation; L81.4 Other melanin hyperpigmentation | CPT/HCPCS: 99213 ==

== ENCOUNTER → 2022-12-08 07:24 | Outpatient (BNVA) | payer MEDICARE, OTHER, SELFPAY | PROVIDERS: PCP Family Medicine; Visit Provider Podiatrist Foot & Ankle Surgery | DX: L84 Corns and callosities; E11.8 Type 2 diabetes mellitus with unspecified complications; M21.611 Bunion of right foot; M20.41 Other hammer toe(s) (acquired), right foot; M20.42 Other hammer toe(s) (acquired), left foot; M25.871 Other specified joint disorders, right ankle and foot | CPT/HCPCS: 73630; 99213 ==

== ENCOUNTER → 2023-04-26 13:27 | Outpatient (BNVA) | payer MEDICARE, OTHER, SELFPAY | PROVIDERS: PCP Family Medicine; Visit Provider Internal Medicine Cardiovascular Disease | DX: R00.2 Palpitations (principal); R06.00 Dyspnea, unspecified; Q24.5 Malformation of coronary vessels; E11.9 Type 2 diabetes mellitus without complications; Z87.891 Personal history of nicotine dependence | CPT/HCPCS: 99213 ==

== ENCOUNTER → 2023-05-13 09:38 | Outpatient (BNVA) | payer MEDICARE, OTHER, SELFPAY | PROVIDERS: PCP Family Medicine; Visit Provider Family Medicine | DX: E11.9 Type 2 diabetes mellitus without complications (principal); Z86.19 Personal history of other infectious and parasitic diseases; E55.9 Vitamin D deficiency, unspecified; L65.9 Nonscarring hair loss, unspecified; Z78.0 Asymptomatic menopausal state; Z86.39 Personal history of other endocrine, nutritional and metabolic disease; M54.50 Low back pain, unspecified; M79.604 Pain in right leg | CPT/HCPCS: 80053; 80061; 82043; 82306; 84443; 85025; 87522 ==

== ENCOUNTER 2023-05-25 15:07 | Outpatient (CLI) | payer MEDICARE, OTHER, SELFPAY ==
--- NOTE | 2023-05-25 15:30 | XR_ITS ---
WS: [id number] SCREENING DEXA SCAN [facility] [employer] CLINICAL INFORMATION: postmenopausal COMPARISON: 2018 FINDINGS: The L1-L4 bone mineral density measures 1.04. This corresponds to a T score score of -1.4 and Z score of -0.1. Left femoral neck bone mineral density measures 0.848 g/cm2. This corresponds to a T score of -1.3 an d Z score of -0.3. Right femoral neck bone mineral density measures 0.852 g/cm2. This corresponds to a T score -1.2of an d Z score of -0.2. Mean femoral neck bone mineral density measures 0.850 g/cm2. This corresponds to a T score of -1.3 an d Z score of -0.2. IMPRESSION: Osteopenia lumbar spine. Osteopenia femoral necks. Patient's FRAX calculated 10 year probability for major osteoporotic fracture is 13.2% and osteoporot ic hip fracture is 12.9%. Bone mineral density decreased lumbar spine -1.8% Bone mineral density decreased femoral necks -10.3%
== END 2023-05-25 15:08 | disposition home or self-care (01) ==
LOC: RAD 15:07
PROVIDERS: PCP Family Medicine; Visit Provider Family Medicine
DX: Z78.0 Asymptomatic menopausal state (principal); M85.862 Other specified disorders of bone density and structure, left lower leg; M85.861 Other specified disorders of bone density and structure, right lower leg; M85.88 Other specified disorders of bone density and structure, other site
CPT/HCPCS: 77080

== ENCOUNTER → 2023-06-11 15:07 | Outpatient (BNVA) | payer MEDICARE, OTHER, SELFPAY | PROVIDERS: PCP Family Medicine; Visit Provider Family Medicine | DX: R30.0 Dysuria (principal) | CPT/HCPCS: 81000; 87086 ==

== ENCOUNTER 2023-06-30 10:21 | Outpatient (CLI) | payer MEDICARE, OTHER, SELFPAY ==
--- NOTE | 2023-06-30 10:34 | MM_ITS ---
WS: [id number] BILATERAL SCREENING DIGITAL TOMOSYNTHESIS MAMMOGRAM WITH CAD HISTORY: SCREENING COMPARISON: 06/23/2022 and 06/19/2021 Bilateral CC and MLO views with tomosynthesis and synthetic mammography submitted. Computer aided det ection analyzed. Breast composition: There are scattered areas of fibroglandular density. No suspicious masses, microc alcifications or architectural distortion. MM/[place] [id number] IMPRESSION: BI-RADS: 1-Negative FOLLOW UP: 1 Year Follow-up
== END 2023-06-30 10:22 | disposition home or self-care (01) ==
LOC: RAD 10:21
PROVIDERS: PCP Family Medicine; Visit Provider Family Medicine
DX: Z12.31 Encounter for screening mammogram for malignant neoplasm of breast (principal)
CPT/HCPCS: 77063; 77067

== ENCOUNTER → 2023-09-21 14:34 | Outpatient (BNVA) | payer MEDICARE, OTHER, SELFPAY | PROVIDERS: PCP Family Medicine; Visit Provider Student in an Organized Health Care Education/Training Program | DX: M25.512 Pain in left shoulder (principal); G89.29 Other chronic pain; M75.42 Impingement syndrome of left shoulder | CPT/HCPCS: 20610; 73030; 99204; J3301 ==

== ENCOUNTER → 2023-12-01 14:32 | Outpatient (BNVA) | payer MEDICARE, OTHER, SELFPAY | PROVIDERS: PCP Family Medicine; Visit Provider Nurse Practitioner Family | DX: D48.5 Neoplasm of uncertain behavior of skin (principal); L57.0 Actinic keratosis; D22.5 Melanocytic nevi of trunk; L57.8 Other skin changes due to chronic exposure to nonionizing radiation; L81.4 Other melanin hyperpigmentation; L73.8 Other specified follicular disorders | CPT/HCPCS: 11104; 17000; 99213 ==

== ENCOUNTER → 2023-12-15 08:06 | Outpatient (BNVA) | payer MEDICARE, OTHER, SELFPAY | PROVIDERS: PCP Family Medicine; Visit Provider Dermatology | DX: L57.0 Actinic keratosis (principal); Z85.828 Personal history of other malignant neoplasm of skin; C44.01 Basal cell carcinoma of skin of lip; D48.5 Neoplasm of uncertain behavior of skin | CPT/HCPCS: 11102; 14060; 17311; 99213 ==

== ENCOUNTER → 2023-12-21 08:12 | Outpatient (BNVA) | payer MEDICARE, OTHER, SELFPAY | PROVIDERS: PCP Family Medicine; Visit Provider Podiatrist Foot & Ankle Surgery | DX: M20.41 Other hammer toe(s) (acquired), right foot; M20.42 Other hammer toe(s) (acquired), left foot; M21.611 Bunion of right foot; E11.69 Type 2 diabetes mellitus with other specified complication; M67.471 Ganglion, right ankle and foot | CPT/HCPCS: 99213 ==

== ENCOUNTER → 2023-12-27 09:27 | Outpatient (BNVA) | payer MEDICARE, OTHER, SELFPAY | PROVIDERS: PCP Family Medicine; Visit Provider Dermatology | DX: T81.31XA Disruption of external operation (surgical) wound, not elsewhere classified, initial encounter (principal); X58.XXXA Exposure to other specified factors, initial encounter | CPT/HCPCS: 99212 ==

== ENCOUNTER → 2023-12-28 14:40 | Outpatient (BNVA) | payer MEDICARE, OTHER, SELFPAY | PROVIDERS: PCP Family Medicine; Visit Provider Student in an Organized Health Care Education/Training Program | DX: M75.42 Impingement syndrome of left shoulder (principal); M25.512 Pain in left shoulder; G89.29 Other chronic pain | CPT/HCPCS: 99213 ==

== ENCOUNTER → 2024-01-06 14:45 | Outpatient (BNVA) | payer MEDICARE, OTHER, SELFPAY | PROVIDERS: PCP Family Medicine; Visit Provider Dermatology | DX: Z48.817 Encounter for surgical aftercare following surgery on the skin and subcutaneous tissue (principal) | CPT/HCPCS: 99212 ==

== ENCOUNTER 2024-01-10 15:48 | Outpatient (CLI) | payer MEDICARE, OTHER, SELFPAY ==
--- NOTE | 2024-01-10 16:00 | MR_ITS ---
WS: [id number] MRI LEFT SHOULDER NONCONTRAST TECHNIQUE: Sagittal T2, coronal T1, T2 and proton density imaging. Axial gradient PDE imaging. CLINICAL INFORMATION: shoulder pain COMPARISON: None. FINDINGS: Advanced degenerative arthritis AC joint with moderate downsloping acromion. Small amount of subacrom ial subdeltoid fluid. Cystic degenerative change along the greater tuberosity. Tendinopathy distal pitts praspinatus. Small undersurface tear distally. No tendon retraction. Infraspinatus appears intact. Te ndinopathy distal infraspinatus with a tiny undersurface tear. Normal teres minor. Subscapularis appears intact distally. Small biceps tendon within the bicipital g roove somewhat diminutive but appears intact. Moderate to advanced degenerative narrowing of the sadie ohumeral articulation. Degenerative fraying of the glenoid labrum. Biceps labral anchor appears intac t. MR/MR shoulder LT wo con* [id number] IMPRESSION: 1. Moderate to advanced degenerative arthritis AC joint with moderate downslop ing acromion. Impingement distal supraspinatus. 2. Tendinopathy distal supraspinatus and infraspinatus with small undersurface tears. No tendon retraction. 3. Rotator cuff is otherwise intact. 4. Biceps tendon appears intact within the bicipital groove although somewhat diminutive. 5. Moderate to advanced degenerative narrowing of the glenohumeral articulatio n. 6. Cystic degenerative changes of the greater tuberosity.
== END 2024-01-10 15:49 | disposition home or self-care (01) ==
LOC: RAD 15:48
PROVIDERS: PCP Family Medicine; Visit Provider Student in an Organized Health Care Education/Training Program
DX: M19.012 Primary osteoarthritis, left shoulder (principal); M75.42 Impingement syndrome of left shoulder; M75.92 Shoulder lesion, unspecified, left shoulder
CPT/HCPCS: 73221

== ENCOUNTER → 2024-02-02 14:11 | Outpatient (BNVA) | payer MEDICARE, OTHER, SELFPAY | PROVIDERS: PCP Family Medicine | DX: J02.9 Acute pharyngitis, unspecified (principal); Z20.818 Contact with and (suspected) exposure to other bacterial communicable diseases | CPT/HCPCS: 87071; 87400; 87426; 87880 ==

== ENCOUNTER → 2024-02-29 14:39 | Outpatient (BNVA) | payer MEDICARE, OTHER, SELFPAY | PROVIDERS: PCP Family Medicine; Visit Provider Student in an Organized Health Care Education/Training Program | DX: M19.012 Primary osteoarthritis, left shoulder (principal); M75.42 Impingement syndrome of left shoulder | CPT/HCPCS: 99214 ==

== ENCOUNTER → 2024-03-08 08:30 | Outpatient (BNVA) | payer MEDICARE, OTHER, SELFPAY | PROVIDERS: PCP Family Medicine; Visit Provider Family Medicine | DX: E11.9 Type 2 diabetes mellitus without complications (principal); Z00.00 Encounter for general adult medical examination without abnormal findings; Z71.89 Other specified counseling | CPT/HCPCS: 80053; 80061; 81000; 83036 ==

== ENCOUNTER → 2024-03-27 14:53 | Outpatient (BNVA) | payer MEDICARE, OTHER, SELFPAY | PROVIDERS: PCP Family Medicine; Visit Provider Family Medicine | DX: E55.9 Vitamin D deficiency, unspecified (principal); R53.83 Other fatigue; R79.89 Other specified abnormal findings of blood chemistry; M25.50 Pain in unspecified joint; K21.9 Gastro-esophageal reflux disease without esophagitis; T78.1XXA Other adverse food reactions, not elsewhere classified, initial encounter; Z86.39 Personal history of other endocrine, nutritional and metabolic disease; R53.82 Chronic fatigue, unspecified; M25.541 Pain in joints of right hand; M25.542 Pain in joints of left hand; Z12.31 Encounter for screening mammogram for malignant neoplasm of breast; X58.XXXA Exposure to other specified factors, initial encounter | CPT/HCPCS: 82607; 82652; 85651; 86003; 86008; 86038; 86140 ==

== ENCOUNTER → 2024-04-07 09:53 | Outpatient (BNVA) | payer MEDICARE, OTHER, SELFPAY | PROVIDERS: PCP Family Medicine; Visit Provider Student in an Organized Health Care Education/Training Program | DX: M19.012 Primary osteoarthritis, left shoulder (principal) | CPT/HCPCS: 20610; 77002; J3301 ==

== ENCOUNTER → 2024-05-03 15:00 | Outpatient (BNVA) | payer MEDICARE, OTHER, SELFPAY | PROVIDERS: PCP Family Medicine; Visit Provider Internal Medicine | DX: R00.2 Palpitations (principal); R06.00 Dyspnea, unspecified; Q24.5 Malformation of coronary vessels; E11.9 Type 2 diabetes mellitus without complications | CPT/HCPCS: 99213 ==

== ENCOUNTER 2024-05-10 08:00 | Outpatient (CLI) | payer MEDICARE, OTHER, SELFPAY ==
--- NOTE | 2024-05-10 08:30 | US_ITS ---
WS: [email or web address] Complete ABDOMINAL ULTRASOUND HISTORY: R10.11 - Right upper quadrant pain COMPARISON: 10/15/2021 Liver: 15.7 cm in length. Normal size liver with diffuse hepatic steatosis. No mass. Portal Vein: Normal hepatopetal flow with monophasic waveform. Gallbladder: Prior cholecystectomy. CBD: 0.4 cm Pancreas: Not visualized. Right kidney: 10.0 cm x 4.2 x 4.1 cm. Cortex:1.0 cm. Normal size and echogenicity. No hydronephrosis or mass. Left kidney: 9.7 cm x 4.7 cm x 5.3 cm. Cortex: 1.5 cm. Normal size and echogenicity. No hydronephrosis or mass. Spleen: 9.5 cm. Normal size and echogenicity. Aorta and IVC: Not well visualized. US/US abdomen complete* [id number] Impression: 1. Prior cholecystectomy. 2. Normal size liver with mild diffuse hepatic steatosis. 3. No hepatobiliary duct dilatation. 4. No renal obstruction.
== END 2024-05-10 08:01 | disposition home or self-care (01) ==
PROVIDERS: PCP Family Medicine; Visit Provider Family Medicine
DX: R10.11 Right upper quadrant pain (principal); Z86.19 Personal history of other infectious and parasitic diseases; Z90.49 Acquired absence of other specified parts of digestive tract; K76.0 Fatty (change of) liver, not elsewhere classified
CPT/HCPCS: 76700

== ENCOUNTER 2024-05-15 15:31 | Outpatient (CLI) | payer MEDICARE, OTHER, SELFPAY ==
--- NOTE | 2024-05-15 15:33 | XR_ITS ---
WS: [id number] XR thoracic spine 3V* [id number] REASON FOR EXAM: M54.9 - Dorsalgia, unspecified FINDINGS: Mild levoscoliosis. Normal kyphosis. No focal vertebral body abnormality. Mild narrowing of the disc spaces with mild endplate sclerosis and osteophytosis in the mid and lower thoracic spine. Prominent right-sided osteophytosis at T8- T9 and T9-T10. XR/XR thoracic spine 3V* [id number] IMPRESSION: Mild scoliosis and degenerative spondylosis as above.
== END 2024-05-15 15:32 | disposition home or self-care (01) ==
LOC: RAD 15:33
PROVIDERS: PCP Family Medicine; Visit Provider Family Medicine
DX: M47.894 Other spondylosis, thoracic region (principal); M41.84 Other forms of scoliosis, thoracic region
CPT/HCPCS: 72072

== ENCOUNTER → 2024-05-22 15:09 | Outpatient (BNVA) | payer MEDICARE, OTHER, SELFPAY | PROVIDERS: PCP Family Medicine; Visit Provider Family Medicine | DX: M25.50 Pain in unspecified joint (principal); R76.8 Other specified abnormal immunological findings in serum | CPT/HCPCS: 85025; 86200; 86431 ==

== ENCOUNTER 2024-05-23 14:24 | Outpatient (CLI) | payer MEDICARE, OTHER, SELFPAY ==
--- NOTE | 2024-05-23 14:32 | XRR_ITS ---
PROCEDURE INFORMATION: Exam: XR Right Hand Exam date and time: 05/23/2024 2:44 PM Age: 69 years old Clinical indication: Pain; Hand; Bilateral; Additional info: M79.641 - pain in right hand TECHNIQUE: Imaging protocol: Radiologic exam of the right hand. Views: 3 or more views. COMPARISON: CR XR hand RT 2V [id number] 04/11/2020 12:21 PM FINDINGS: Bones/joints: Normal alignment. No fracture. Minimal 5th D IP joint osteoarthritis. Soft tissues: Normal. XR/XR hand RT min 3V* [id number] IMPRESSION: 1. No acute osseous abnormality. 2. Minimal 5th D IP joint osteoarthritis.
--- NOTE | 2024-05-23 14:32 | XRR_ITS ---
PROCEDURE INFORMATION: Exam: XR Left Hand Exam date and time: 05/23/2024 2:44 PM Age: 69 years old Clinical indication: Pain; Hand; Bilateral; Additional info: M79.642 - pain in left hand TECHNIQUE: Imaging protocol: Radiologic exam of the left hand. Views: 3 or more views. COMPARISON: CR XR hand LT 2V [id number] 04/11/2020 12:21 PM FINDINGS: Bones/joints: Normal alignment. Minimal osteoarthritis in the distal interphalangeal joints. No fracture. Soft tissues: New tiny curvilinear superficial foreign body in the soft tissues of the 1st interspace near the 1st MCP joint. XR/XR hand LT min 3V* [id number] IMPRESSION: 1. Minimal osteoarthritis in the distal interphalangeal joints. 2. New tiny curvilinear superficial foreign body in the soft tissues of the 1st interspace near the 1st MCP joint. Correlate clinically. 3. No acute osseous abnormality.
--- NOTE | 2024-05-23 14:32 | XRR_ITS ---
PROCEDURE INFORMATION: Exam: XR Left Elbow Exam date and time: 05/23/2024 2:44 PM Age: 69 years old Clinical indication: Pain; Elbow; Bilateral; Additional info: M25.522 - pain in left elbow TECHNIQUE: Imaging protocol: Radiologic exam of the left elbow. Views: 3 or more views. COMPARISON: MR shoulder LT wo con* [id number] 01/10/2024 4:23 PM FINDINGS: Bones/joints: Normal. Soft tissues: Normal. XR/XR elbow LT min 3V* [id number] IMPRESSION: No acute findings.
--- NOTE | 2024-05-23 14:32 | XRR_ITS ---
PROCEDURE INFORMATION: Exam: XR Right Elbow Exam date and time: 05/23/2024 2:44 PM Age: 69 years old Clinical indication: Pain; Elbow; Bilateral; Additional info: M25.521 - pain in right elbow TECHNIQUE: Imaging protocol: Radiologic exam of the right elbow. Views: 3 or more views. COMPARISON: CR XR hand RT 2V [id number] 04/11/2020 12:21 PM FINDINGS: Bones/joints: Normal. Soft tissues: Normal. XR/XR elbow RT min 3V* [id number] IMPRESSION: No acute findings.
== END 2024-05-23 14:25 | disposition home or self-care (01) ==
PROVIDERS: PCP Family Medicine; Visit Provider Family Medicine
DX: M79.642 Pain in left hand (principal); M25.521 Pain in right elbow; M25.421 Effusion, right elbow; M79.641 Pain in right hand; M25.522 Pain in left elbow; M25.422 Effusion, left elbow; G89.29 Other chronic pain
CPT/HCPCS: 73080; 73130

== ENCOUNTER → 2024-07-11 14:54 | Outpatient (BNVA) | payer MEDICARE, OTHER, SELFPAY | PROVIDERS: PCP Family Medicine; Visit Provider Student in an Organized Health Care Education/Training Program | DX: M19.012 Primary osteoarthritis, left shoulder (principal) | CPT/HCPCS: 99213 ==

== ENCOUNTER → 2024-09-27 09:07 | Outpatient (BNVA) | payer MEDICARE, OTHER, SELFPAY | PROVIDERS: PCP Family Medicine; Visit Provider Family Medicine | DX: I10 Essential (primary) hypertension (principal); E11.9 Type 2 diabetes mellitus without complications; E55.9 Vitamin D deficiency, unspecified; E53.9 Vitamin B deficiency, unspecified; R53.83 Other fatigue | CPT/HCPCS: 80048; 82607; 82652; 83036; 83735; 84443; 85025 ==

== ENCOUNTER → 2024-10-18 10:23 | Outpatient (BNVA) | payer MEDICARE, OTHER, SELFPAY | PROVIDERS: PCP Family Medicine; Visit Provider Family Medicine | DX: I10 Essential (primary) hypertension (principal) | CPT/HCPCS: 80048 ==

== ENCOUNTER → 2024-11-30 14:11 | Outpatient (BNVA) | payer MEDICARE, OTHER, SELFPAY | PROVIDERS: PCP Family Medicine; Visit Provider Nurse Practitioner Family | DX: L57.8 Other skin changes due to chronic exposure to nonionizing radiation (principal); L81.4 Other melanin hyperpigmentation; L82.1 Other seborrheic keratosis; D18.01 Hemangioma of skin and subcutaneous tissue; L57.0 Actinic keratosis | CPT/HCPCS: 11102; 17000; 99213 ==

== ENCOUNTER → 2024-12-19 08:36 | Outpatient (BNVA) | payer MEDICARE, OTHER, SELFPAY | PROVIDERS: PCP Family Medicine; Visit Provider Podiatrist Foot & Ankle Surgery | DX: L84 Corns and callosities (principal); M21.611 Bunion of right foot; M79.671 Pain in right foot; E11.8 Type 2 diabetes mellitus with unspecified complications; M20.41 Other hammer toe(s) (acquired), right foot; M20.42 Other hammer toe(s) (acquired), left foot; M67.471 Ganglion, right ankle and foot | CPT/HCPCS: 99213 ==